=== PATIENT | female | born 1970 | race Two or more races ===

== ENCOUNTER 2019-01-26 06:00 | Day surgery (SDC) | payer OTHER ==
[~2019-01-26] VITALS: Ht 167.6 cm; Wt 65.8 kg
== END 2019-01-27 09:00 | disposition home or self-care (01) ==
LOC: CIR.AMB 06:00 → SURG 07:00 → EDSTATUS 08:00 → SURG 08:00 → OB/GYN 14:49 → O/R 14:49 → CIR.AMB 01-27 09:00 → OB/GYN 01-27 16:34
PROVIDERS: Plastic Surgery; Surgery
PROC: 0HHV0NZ Insertion of Tissue Expander into Bilateral Breast, Open Approach (ICD-10-PCS; 2019-01-26)
PROC: 0HTV0ZZ Resection of Bilateral Breast, Open Approach (ICD-10-PCS; principal; 2019-01-26 07:00)
PROC: 0HBT0ZX Excision of Right Breast, Open Approach, Diagnostic (ICD-10-PCS; 2019-01-26 07:00)
DX: C50.011 Malignant neoplasm of nipple and areola, right female breast (principal); Z17.0 Estrogen receptor positive status [ER+]

== ENCOUNTER 2019-11-30 05:55 | Day surgery (SDC) | payer OTHER ==
[~2019-11-30 05:55] MED LIST: CALCIUM PO; MULTIVITAMINS1 EAC9 PO; SUPER B-50 COM1 EACH PO; VITAMIN C PO; VITAMIN D310 MCG/1 M PO
== END 2019-11-30 13:55 | disposition home or self-care (01) ==
LOC: CIR.AMB 05:55
PROVIDERS: ATTEND Plastic Surgery
DX: C50.911 Malignant neoplasm of unspecified site of right female breast (principal); Z90.13 Acquired absence of bilateral breasts and nipples; T82.514A Breakdown (mechanical) of infusion catheter, initial encounter; Z20.828 Contact with and (suspected) exposure to other viral communicable diseases

== ENCOUNTER 2021-01-16 05:56 | Day surgery (SDC) | payer OTHER ==
[~2021-01-16 05:56] MED LIST changes: +CALTRATE 600 +1 EACH
== END 2021-01-16 14:30 | disposition home or self-care (01) ==
LOC: CIR.AMB 05:56
PROVIDERS: ATTEND Plastic Surgery
DX: Z90.13 Acquired absence of bilateral breasts and nipples (principal); Z20.822 Contact with and (suspected) exposure to COVID-19